=== PATIENT | male | born 1990 | race Caucasian/White ===

== ENCOUNTER 2017-07-11 01:01 | Emergency (ER) | payer OTHER ==
[2017-07-11 01:08] VITALS: RESP 16; TEMP 98.1
[2017-07-11] MEDS ORDERED: TDAP ADULT 0.5 ML INJ (BOOSTRIX) IM ONE (01:26)
[2017-07-11] MEDS ORDERED: AMOXICILLIN/CLAVULANATE POT 875/125 MG TAB PO ONE (01:31)
--- NOTE | 2017-07-11 01:31 | EDPHY ---
General Narrative: CHIEF COMPLAINT: Dog bite, pain HISTORY OF PRESENT ILLNESS: Patient complains of dog bite to the left hand. This happened around 7:00 p.m. this evening. There are 2 punctures on the posterior aspect of hand between the 3rd and carpal. There is 1 puncture on the palm of the hand centrally. Minimal bleeding. Moderately painful with palpation movement. Also has significant pain on the left middle finger proximal phalanx. Difficulty fully bending and straightening this finger. He did accidentally smashed the finger between wood earlier this week. There is no erythema. No purulence. No fever. No other associated complaints or modifying factors. Questionable tetanus status. ESTABLISHED ORTHOPEDIST: None REVIEW OF SYSTEMS: Ten systems reviewed and are negative unless otherwise noted in the HPI PAST MEDICAL HISTORY: None PAST SURGICAL HISTORY: Orthopedic SOCIAL HISTORY: Nonsmoker. Works with computer programming FAMILY HISTORY: Noncontributory EXAMINATION General Appearance: Alert, no distress Cardiovascular: Pulses normal throughout. Symmetric radial pulses 2+. Brisk cap refill Neurological: A&O, interossei strength symmetric Skin: Warm and dry, no rash. Two puncture davis is over the posterior hand between the 3rd and 4th metacarpal mg 1 puncture timothy on the palmar side centrally. No bleeding. No foreign body. Extremities: Tenderness over the areas of puncture. There is also tenderness of the left middle finger PIP joint. There is no puncture within the vicinity of this pain. Flexion extension retained but with pain when bending and straightening the left middle finger. Neurovascular intact distally. Psychiatric: Mood and affect normal DIFFERENTIAL DIAGNOSES: Including but not limited to dog bite, dog bite with fracture, dog bite complication, tenosynovitis MDM: 1:25 a.m. Dog bite to the left hand. Vaccinated known dog in custody. Pain over the areas of puncture, but additionally there is pain over the left middle finger, proximal phalanx. There is no dog bite to the area this hand. He did injure that hand earlier this week. X-ray has been obtained and I will evaluate. I have anesthetize the area for irrigation. Tetanus will be updated. 1:50 a.m. X-ray as read by me reveals no acute fracture or dislocation. There is no air in the joint of question. I do not feel that the dog bite is the cause of the patient's left middle finger PIP pain. If so, the presentation is too soon for this to be infection/tenosynovitis or septic joint. There is no warmth to the joint. No cellulitis or erythema. I will treat the patient with Augmentin, short course of pain medication. We have strict ED precautions discussed and he is agreeable with this. I would like him to be re-evaluated in 48 hours for wound check. I would like him to return sooner as discussed if needed. He is comfortable with this plan. He is discharged home stable condition, neurovascular intact. ED Precautions: Worsening pain. Erythema, edema, cyanosis, pallor, paresthesia or anesthesia. - History Smoking Status: Never smoked - Objective Vital Signs: Initial Vital Signs Temperature (C) 98.1 F 07/11/17 01:06 Heart Rate 64 07/11/17 01:06 Respiratory Rate 16 07/11/17 01:06 Blood Pressure 153/82 H 07/11/17 01:06 O2 Sat (%) 95 07/11/17 01:06 O2 Delivery Mode Room Air Allergies/Adverse Reactions: No Known Allergies Allergy (Verified 07/11/17 01:05) Home Medications: Medication Instructions Recorded Amoxicillin/Clavulanate Pot 875 mg PO BID #14 tab 07/11/17 [Augmentin 875 MG TAB (*)] Hydrocodone/APAP 5/325 [Vanderbilt 1 - 2 tab PO Q4H PRN #7 tab 07/11/17 5/325 (*)] Medications Given: Discontinued Medications Amoxicillin/Clavulanate Potassium (Augmentin 875mg) 875 mg PO EDNOW ONE PRN Reason: Protocol Stop: 07/11/17 01:32 Last Admin: 07/11/17 01:49 Dose: 875 mg Diphtheria/Tetanus/Acell Pertussis (Boostrix) 0.5 ml IM .ONCE ONE Stop: 07/11/17 01:27 Last Admin: 07/11/17 01:49 Dose: 0.5 ml Oxycodone/Acetaminophen (Percocet 5/325mg Prepack#4) 1 btl TAKEHOME EDNOW ONE Stop: 07/11/17 02:14 Last Admin: 07/11/17 02:16 Dose: 1 btl Departure - Departure Disposition: Home, Routine, Self-Care Clinical Impression: Dog bite, hand Qualifiers: Encounter type: initial encounter Laterality: left Qualified Code(s): S61.452A - Open bite of left hand, initial encounter; W54.0XXA - Bitten by dog, initial encounter; W54.0XXA - Bitten by dog, initial encounter Condition: Good Instructions: Oxycodone/Acetaminophen (By mouth), Animal Bite (ED) Additional Instructions: 1. Antibiotic medication as prescribed to completion 2. Pain medication as prescribed as needed 3. 48 hour wound check here or with primary care physician Thursday 4. Hand surgery follow-up outpatient if needed 5. ED precautions as discussed Referrals: Pauly Tapia MD [Medical Doctor] - As per Instructions Physician,Emergency DeptMD [Medical Doctor] - As per Instructions (48 hour wound check) Prescriptions: Amoxicillin/Clavulanate Pot [Augmentin 875 MG TAB (*)] 875 mg PO BID #14 tab Hydrocodone/APAP 5/325 [Vanderbilt 5/325 (*)] 1 - 2 tab PO Q4H PRN #7 tab PRN Reason: Pain, Moderate
[2017-07-11] MEDS ORDERED: OXYCODONE/APAP 5/325MG PREPACK#4 BTL TAKEHOME ONE (02:13)
[2017-07-11 02:21] VITALS: BP 135/73; PULSE 73; O2SAT 96
== END 2017-07-11 02:25 | disposition home or self-care (01) ==
DX: S61.452A Open bite of left hand, initial encounter (principal); Z23 Encounter for immunization; W54.0XXA Bitten by dog, initial encounter